=== PATIENT | male | born 1965 | race Caucasian/White ===

== ENCOUNTER → 2023-04-26 06:51 | Outpatient (REF) | payer BC, SELFPAY ==
[2023-04-26 11:13] LABS: PSA, Total - Diagnostic 1.54 ng/ml (0.0-4.0)
== END ==
LOC: HWLAB 06:51
PROVIDERS: ATTENDING PHYSICIAN Urology; FAMILY PHYSICIAN Internal Medicine
DX: N40.1 Benign prostatic hyperplasia with lower urinary tract symptoms (principal); N52.9 Male erectile dysfunction, unspecified; R39.14 Feeling of incomplete bladder emptying
CPT/HCPCS: 36415; 84153

== ENCOUNTER 2023-11-19 06:25 | Day surgery (SDC) | payer BC, OTHER, SELFPAY ==
[2023-11-19] VITALS (8 sets, daily range): BP systolic 130–172; BP diastolic 72–108; BMI 39.2
[2023-11-19] MEDS: NORMOSOL-R 1000 IV (08:16)
[2023-11-19] MEDS: MOBIC 15 MG PO (08:17)
[2023-11-19] MEDS: TYLENOL 1000 MG PO (08:17)
[2023-11-19] MEDS: DILAUDID 0.5 MG IV (12:10)
[2023-11-19] MEDS: DILAUDID 0.25 MG IV (12:27)
== END 2023-11-19 13:43 | disposition home or self-care (01) ==
LOC: SDS 06:25
PROVIDERS: ATTENDING PHYSICIAN Student in an Organized Health Care Education/Training Program
PROC: 0LXN0ZZ Transfer Right Lower Leg Tendon, Open Approach (ICD-10-PCS; 2023-11-19)
DX: S86.311A Strain of muscle(s) and tendon(s) of peroneal muscle group at lower leg level, right leg, initial encounter (principal); X58.XXXA Exposure to other specified factors, initial encounter; M25.371 Other instability, right ankle
CPT/HCPCS: 27698

== ENCOUNTER → 2024-02-01 08:46 | Outpatient (REF) | payer BC, SELFPAY ==
[2024-02-01 12:39] LABS: ALT (SGPT) 51 U/L (0-50); AST (SGOT) 39 U/L (17-59); Albumin 4.7 g/dl (3.5-5.0); Alkaline Phosphatase 60 U/L (38-126); Blood Urea Nitrogen 17 mg/dl (9-20); Calcium 9.7 mg/dl (8.4-10.2); Carbon Dioxide 26 mmol/L (22-30); Chloride 104 mmol/L (98-107); Glucose 95 mg/dl (70-99); Potassium 4.4 mmol/L (3.5-5.1); Sodium 141 mmol/L (135-145); Total Bilirubin 1.7 mg/dl (0.2-1.3); Total Cholesterol 205 mg/dl (50-199); Total Protein 7.1 g/dl (6.3-8.2); Triglyceride 151 mg/dl (10-149); Very Low Density Lipoprotein 30 mg/dl (0-30); eGFR > 60.00
[2024-02-01 12:46] LABS: % Basophils 2.1 % (0-2); % Eosinophils 3.4 % (0-6); % Immature Granulocytes 0.8 % (0-0.5); % Lymphocytes 43.6 % (20.5-51.1); % Monocytes 10.9 % (1.7-9.3); % Neutrophils 39.2 % (42.2-75.2); Absolute Basophils 0.1 10^3/uL (0-0.2); Absolute Eosinophils 0.2 10^3/uL (0-0.7); Absolute Immature Granulocytes 0.1 10^3/uL (0-0.05); Absolute Lymphocytes 2.9 10^3/uL (1.2-3.4); Absolute Monocytes 0.7 10^3/uL (0.1-0.6); Absolute Neutrophils 2.6 10^3/uL (1.4-6.5); Hematocrit 49.3 % (39.0-52.0); Hemoglobin 17.1 g/dL (13.0-18.0); Mean Corp Hgb Conc. 34.7 g/dL (33.0-37.0); Mean Corpuscular Hgb 31.2 pg (27.0-31.0); Mean Platelet Volume 10.5 fL (7.4-10.4); Nucleated Red Blood Cells % 0 % (-); Platelet Count 277 10^3/uL (130-400); Red Blood Cell Count 5.48 10^6/uL (4.70-6.10); Red Cell Dist. Width 12.5 % (11.5-14.5); White Blood Cell Count 6.5 10^3/uL (4.8-10.8)
[2024-02-01 12:55] LABS: HDL Cholesterol 62 mg/dl; LDL Cholesterol, Calculated 113 mg/dl
[2024-02-01 12:57] LABS: Total Thyroxine 7.42 ug/dl (5.5-11.0)
[2024-02-01 13:10] LABS: TSH 0.76 uIU/ml (0.47-4.68)
== END ==
LOC: HWLAB 08:46
PROVIDERS: ATTENDING PHYSICIAN Internal Medicine
DX: E03.9 Hypothyroidism, unspecified (principal); I10 Essential (primary) hypertension; M16.0 Bilateral primary osteoarthritis of hip; E78.5 Hyperlipidemia, unspecified
CPT/HCPCS: 36415; 80053; 80061; 84436; 84443; 85025

== ENCOUNTER → 2024-05-02 11:49 | Outpatient (REF) | payer BC, SELFPAY ==
[2024-05-02 16:21] LABS: PSA, Total - Diagnostic 1.38 ng/ml (0.0-4.0)
== END ==
LOC: HWLAB 11:49
PROVIDERS: ATTENDING PHYSICIAN Urology
DX: N40.1 Benign prostatic hyperplasia with lower urinary tract symptoms (principal)
CPT/HCPCS: 36415; 84153